=== PATIENT | female | born 1960 | race Caucasian/White ===

== ENCOUNTER 2017-05-23 16:38 | Emergency (ER) | payer SELFPAY ==
[2017-05-23] MEDS ORDERED: IPRATROPIUM/ALBUTEROL 0.5-2.5 MG/3 ML AMPUL NEB ONE (17:11)
[2017-05-23] MEDS ORDERED: KETOROLAC TROMETHAMINE 60 MG/2 ML SDV IM ONE (17:11)
--- NOTE | 2017-05-23 17:17 | ER Document Report ---
ED General - General Chief Complaint: Cough Stated Complaint: HEADACHE Time Seen by Provider: 05/23/17 17:06 Notes: pt is a 56 yo female presenting to ED today c/o cough and headache. pt reports a hx/o COPD but still smokes, although she reports "cutting back". pt is on no medications and has no primary care, due to lack of insurance. pt reports she has had a productive cough with green mucus x 1 month and she developed a headache yesterday. pt admits her chest feels tight and she had heard some wheezing. her headache is frontal, constant pressure. denies any fever, neck pain or stiffness. + nausea, no vomiting. TRAVEL OUTSIDE OF THE [place] IN LAST 30 DAYS: No - HPI Onset/Duration: Gradual, Persistent Quality of pain: Achy, Pressure Pain Level: 2 Associated symptoms: Productive cough, Headache, Nausea, Sinus pain/drainage, Sore throat. denies: Fever, Hurts to breath, Vomiting Exacerbated by: Denies Relieved by: Denies Similar symptoms previously: Yes - Related Data Allergies/Adverse Reactions: oxycodone [From OxyContin] Allergy (Verified 05/23/17 17:37) Past Medical History - General Information source: Patient - Social History Smoking Status: Current Every Day Smoker Frequency of alcohol use: None Drug Abuse: None Lives with: Family Family History: Reviewed & Not Pertinent Pulmonary Medical History: Reports: Hx COPD Renal/ Medical History: Denies: Hx Peritoneal Dialysis Past Surgical History: Reports: Hx Hysterectomy, Hx Orthopedic Surgery, Hx Tubal Ligation - Immunizations Hx Diphtheria, Pertussis, Tetanus Vaccination: Yes Review of Systems - Review of Systems Constitutional: No symptoms reported EENT: No symptoms reported Cardiovascular: No symptoms reported Respiratory: See HPI, Cough Gastrointestinal: No symptoms reported Genitourinary: No symptoms reported Female Genitourinary: No symptoms reported Musculoskeletal: No symptoms reported Skin: No symptoms reported Hematologic/Lymphatic: No symptoms reported Neurological/Psychological: No symptoms reported Physical Exam - Vital signs Vitals: Temp Pulse Resp BP Pulse Ox 97.9 F 81 18 140/81 H 96 05/23/17 16:41 05/23/17 16:41 05/23/17 16:41 05/23/17 16:41 05/23/17 16:41 Interpretation: Normal - General General appearance: Appears well, Alert In distress: None - HEENT Head: Normocephalic, Atraumatic Eyes: Normal Conjunctiva: Normal Extraocular movements intact: Yes Pupils: PERRL Tympanic membrane: Normal Pharynx: Normal. No: Erythema, Exudate Neck: Normal, Supple. No: Meningismus - Respiratory Respiratory status: No respiratory distress Chest status: Nontender Breath sounds: Decreased air movement - bases Chest palpation: Normal - Cardiovascular Rhythm: Regular Heart sounds: Normal auscultation Murmur: No - Abdominal Inspection: Normal Distension: No distension Bowel sounds: Normal Tenderness: Nontender Organomegaly: No organomegaly - Back Back: Normal, Nontender - Extremities General upper extremity: Normal inspection, Nontender, Normal color, Normal ROM , Normal temperature General lower extremity: Normal inspection, Nontender, Normal color, Normal ROM , Normal temperature, Normal weight bearing. No: Viky's sign - Neurological Neuro grossly intact: Yes Cognition: Normal Orientation: AAOx4 Marshall Coma Scale Eye Opening: Spontaneous Renny Coma Scale Verbal: Oriented Renny Coma Scale Motor: Obeys Commands Renny Coma Scale Total: 15 Speech: Normal Motor strength normal: LUE, RUE, LLE, RLE Sensory: Normal - Psychological Associated symptoms: Normal affect, Normal mood - Skin Skin Temperature: Warm Skin Moisture: Dry Skin Color: Normal Course - Re-evaluation Re-evalutation: 05/23/17 17:45 chest xray is negative. results reviewed with pt. Pt's cough is most c/w COPD exacerbation. I estimate there is low risk of metastatic disease, pneumonia, pneumothorax, CHF. pt reports some improvement after neb. will treat cough with bronchodilator, oral steroid and cough suppressant. pt declined the Toradol injection for her headache. Medicated with motrin. Pt' s headache if most consistant with a tension/sinus headache. I estimate there is low risk for acute glaucoma, temporal arteritis, meningitis, intracranial hemorrhage or ischemic stroke. pt is neurologically intact without deficits. I consider the discharge disposition reasonable. the patient and have discussed the diagnosis and risks and we agree with discharge home. We also discussed returning to the ED immediately if new or worsening symptoms occur. We have discussed the symptoms which are most concerning, increasing pain, shortness of breath, chest pain, numbness or weakness, vomiting or fever. - Vital Signs Vital signs: Temp Pulse Resp BP Pulse Ox 97.9 F 81 18 140/81 H 96 05/23/17 16:41 05/23/17 16:41 05/23/17 16:41 05/23/17 16:41 05/23/17 16:41 Discharge - Discharge Clinical Impression: Cough, COPD exacerbation Headache Qualifiers: Headache type: unspecified Headache chronicity pattern: acute headache Intractability: not intractable Qualified Code(s): R51 - Headache Condition: Stable Disposition: HOME, SELF-CARE Instructions: Chronic Obstructive Lung Disease ([facility]), Tension Headache ([facility]), Inhaled Bronchodilators ([facility]), Steroid Medication, Stop Smoking ([facility]) Additional Instructions: Your xray is negative for pneumonia Use inhaler as needed for chest tightness, wheezing Take oral steroid as prescribed Use cough suppressant as needed If your headache returns, I recommend taking 2 benadryl tablets + 1 phenergan tablet and lay down in a dark, cool room rest and hydrate stop smoking return to ER for any worsening of status Prescriptions: Benzonatate [Tessalon Perles 100 mg Capsule] 200 mg PO Q8HP PRN #40 capsule PRN Reason: Albuterol Sulfate [Proair HFA Inhalation Aerosol 8.5 gm MDI] 2 puff IH Q4H PRN # 1 mdi PRN Reason: Prednisone 20 mg PO BID #16 tablet Promethazine HCl [Phenergan 25 mg Tablet] 25 mg PO Q6H PRN #15 tablet PRN Reason:
[2017-05-23] MEDS ORDERED: IBUPROFEN 800 MG TABLET PO ONE (17:34)
--- NOTE | 2017-05-23 17:34 | RADIOLOGY REPORT (SQ) ---
EXAM DESCRIPTION: CHEST PA/LAT COMPLETED DATE/TIME: 05/23/2017 5:23 pm REASON FOR STUDY: cough x 1 month COMPARISON: 03/14/2015 EXAM PARAMETERS: NUMBER OF VIEWS: two views TECHNIQUE: Digital Frontal and Lateral radiographic views of the chest acquired. RADIATION DOSE: NA LIMITATIONS: none FINDINGS: LUNGS AND PLEURA: No opacities, masses or pneumothorax. No pleural effusion. MEDIASTINUM AND HILAR STRUCTURES: No masses or contour abnormalities. HEART AND VASCULAR STRUCTURES: Heart normal size. No evidence for failure. BONES: No acute findings. Mild degenerative changes noted in the spine. HARDWARE: None in the chest. OTHER: No other significant finding. IMPRESSION: NO SIGNIFICANT RADIOGRAPHIC FINDING IN THE CHEST. TECHNICAL DOCUMENTATION: JOB ID: [id number] [employer]- All Rights Reserved
[2017-05-23 18:12] VITALS: BP 128/69
== END 2017-05-23 18:13 | disposition home or self-care (01) ==
LOC: ER 16:38
DX: J44.1 Chronic obstructive pulmonary disease with (acute) exacerbation (principal); R05 Cough; R51 Headache; R07.9 Chest pain, unspecified; R06.2 Wheezing; R11.0 Nausea; F17.210 Nicotine dependence, cigarettes, uncomplicated
CPT/HCPCS: 94640; 99284; 71020; J7620; J1885

== ENCOUNTER 2018-10-19 13:34 | Emergency (ER) | payer SELFPAY ==
[2018-10-19 14:07] VITALS: BP 150/70
[2018-10-19] MEDS ORDERED: ONDANSETRON 4 MG TAB.RAPDIS PO ONE (15:17)
--- NOTE | 2018-10-19 15:19 | ER Document Report ---
ED Medical Screen (RME) - General Chief Complaint: Nausea/Vomiting Stated Complaint: EAR PAIN Time Seen by Provider: 10/19/18 15:17 Mode of Arrival: Ambulatory Information source: Patient Notes: 57-year-old female presents to ED for cough cold congestion body aches nausea and vomiting x3 today. She states she has had a cough. She states that the people at work of had the flu and she wanted to get tested and found it while she is having vomiting. Patient is alert oriented respirations regular and unlabored she also complained of earache and her ears are not red and inflamed or any signs or symptoms of infection. She does have a runny nose congestion. Patient will be treated with some Zofran in the pit area blood work flu test and chest x-ray will be completed and patient will be seen by another provider. I have greeted and performed a rapid initial assessment of this patient. A comprehensive ED assessment and evaluation of the patient, analysis of test results and completion of medical decision making process will be conducted by an additional ED providers. TRAVEL OUTSIDE OF THE [place] IN LAST 30 DAYS: No - Related Data Allergies/Adverse Reactions: oxycodone [From OxyContin] Allergy (Verified 10/19/18 13:35) Past Medical History Pulmonary Medical History: Reports: Hx COPD Renal/ Medical History: Denies: Hx Peritoneal Dialysis Past Surgical History: Reports: Hx Hysterectomy, Hx Orthopedic Surgery, Hx Tubal Ligation - Immunizations Hx Diphtheria, Pertussis, Tetanus Vaccination: Yes Physical Exam - Vital signs Vitals: Temp Pulse Resp BP Pulse Ox 98.5 F 80 18 150/70 H 94 10/19/18 14:06 10/19/18 14:06 10/19/18 14:06 10/19/18 14:06 10/19/18 14:06 Course - Vital Signs Vital signs: Temp Pulse Resp BP Pulse Ox 98.5 F 80 18 150/70 H 94 10/19/18 14:06 10/19/18 14:06 10/19/18 14:06 10/19/18 14:06 10/19/18 14:06
[2018-10-19 15:50] LABS: ABSOLUTE BASOPHILS # (AUTO) 0.1 10^3/uL (0.0-0.2); ABSOLUTE EOSINOPHILS # (AUTO) 0.2 10^3/uL (0.0-0.6); ABSOLUTE LYMPHOCYTES (AUTO) 3.3 10^3/uL (0.5-4.7); ABSOLUTE MONOCYTES (AUTO) 0.9 10^3/uL (0.1-1.4); ABSOLUTE NEUT (AUTO) 3.2 10^3/uL (1.7-8.2); BASOPHILS % (AUTO) 1.1 % (0-2); EOSINOPHILS % (AUTO) 2.6 % (0-6); HEMATOCRIT 46.5 % (36.0-47.0); HEMOGLOBIN 15.8 g/dL (12.0-15.5); LYMPHOCYTES % (AUTO) 42.8 % (13-45); MEAN CORPUSCULAR VOLUME 85 fl (80-97); MONOCYTES % (AUTO) 11.5 % (3-13); PLATELET COUNT 173 10^3/uL (150-450); RED BLOOD COUNT 5.46 10^6/uL (3.72-5.28); RED CELL DISTRIBUTION WIDTH 13.4 % (11.5-14.0); TOTAL CELLS COUNTED % (AUTO) 100 %; WHITE BLOOD COUNT 7.7 10^3/uL (4.0-10.5)
--- NOTE | 2018-10-19 16:02 | RADIOLOGY REPORT (SQ) ---
EXAM DESCRIPTION: CHEST 2 VIEWS COMPLETED DATE/TIME: 10/19/2018 3:49 pm REASON FOR STUDY: Cough congestion flulike symptoms COMPARISON: 05/23/2017 EXAM PARAMETERS: NUMBER OF VIEWS: two views TECHNIQUE: Digital Frontal and Lateral radiographic views of the chest acquired. RADIATION DOSE: NA LIMITATIONS: none FINDINGS: LUNGS AND PLEURA: No opacities, masses or pneumothorax. No pleural effusion. MEDIASTINUM AND HILAR STRUCTURES: No masses or contour abnormalities. HEART AND VASCULAR STRUCTURES: Heart normal size. No evidence for failure. BONES: Disc degenerative disease of the thoracic spine. HARDWARE: None in the chest. OTHER: No other significant finding. IMPRESSION: No acute abnormality of the lungs. No focal airspace opacity. TECHNICAL DOCUMENTATION: JOB ID: [id number] [employer]- All Rights Reserved Reading location - IP/workstation name: [email or web address]
[2018-10-19 16:13] LABS: APPEARANCE,URINE CLEAR; BILIRUBIN,URINE NEGATIVE (NEGATIVE); COLOR,URINE COLORLESS; GLUCOSE, URINE NEGATIVE (NEGATIVE); KETONES,URINE NEGATIVE (NEGATIVE); LEUKOCYTE ESTERASE,URINE NEGATIVE (NEGATIVE); NITRITE,URINE NEGATIVE (NEGATIVE); PROTEIN,URINE NEGATIVE (NEGATIVE); URINE SPECIFIC GRAVITY 1.001; UROBILINOGEN,URINE NEGATIVE mg/dL (<2.0)
[2018-10-19 16:20] LABS: ALANINE AMINOTRANSFERASE 26 U/L (9-52); ALBUMIN 4.3 g/dL (3.5-5.0); ALKALINE PHOSPHATASE 82 U/L (38-126); ANION GAP 9 (5-19); ASPARTATE AMINO TRANSFERASE 48 U/L (14-36); BILIRUBIN,DIRECT 0.4 mg/dL (0.0-0.4); BILIRUBIN,TOTAL 0.4 mg/dL (0.2-1.3); BLOOD UREA NITROGEN 14 mg/dL (7-20); CARBON DIOXIDE 29 mmol/L (22-30); CHLORIDE 103 mmol/L (98-107); GLUCOSE 100 mg/dL (75-110); POTASSIUM 4.5 mmol/L (3.6-5.0); SODIUM 140.8 mmol/L (137-145)
[2018-10-19 16:24] LABS: A TYPE INFLUENZA AG NEGATIVE (NEGATIVE); B INFLUENZA AG NEGATIVE (NEGATIVE)
--- NOTE | 2018-10-19 16:42 | ER Document Report ---
HPI - HPI Time Seen by Provider: 10/19/18 15:17 Pain Level: 3 Notes: Patient is a 57-year-old female with no significant past medical history who presents to the emergency department complaining of nasal congestion/discharge, dry nonproductive cough, right earache over the last 3 days. She is also had a few episodes of nausea and vomiting. She is otherwise eating and drinking without difficulty. She has no significant cardiopulmonary or immunocompromising medical conditions. She is urinating normally and having normal bowel movements. No other concerns or complaints. Denies any smoking or drug use. Denies any headache, fever, neck pain, sore throat, chest pain, palpitations, syncope, shortness of breath, wheeze, dyspnea, abdominal pain, diarrhea, urinary retention, dysuria, hematuria, or rash. - ROS Systems Reviewed and Negative: Yes All other systems reviewed and negative - REPRODUCTIVE Reproductive: DENIES: : Past Medical History - General Information source: Patient - Social History Smoking Status: Never Smoker Family History: Reviewed & Not Pertinent Pulmonary Medical History: Reports: Hx COPD Renal/ Medical History: Denies: Hx Peritoneal Dialysis Past Surgical History: Reports: Hx Hysterectomy, Hx Orthopedic Surgery, Hx Tubal Ligation - Immunizations Hx Diphtheria, Pertussis, Tetanus Vaccination: Yes Vertical Provider Document - CONSTITUTIONAL Agree With Documented VS: Yes Notes: PHYSICAL EXAMINATION: GENERAL: Well-appearing, well-nourished and in no acute distress. A&Ox4. HEAD: Atraumatic, normocephalic. EYES: Pupils equal round and reactive to light, extraocular movements intact, sclera anicteric, conjunctiva are normal. ENT: EAC clear b/l. TM's intact b/l without erythema, fluid, or perforation. Nares patent and with clear discharge. oropharynx clear without exudates. No tonsilar hypertrophy or erythema. Moist mucous membranes. No sinus tenderness. NECK: Normal range of motion, supple without lymphadenopathy LUNGS: Breath sounds clear to auscultation bilaterally and equal. No wheezes rales or rhonchi. HEART: Regular rate and rhythm without murmurs, rubs, gallops. ABDOMEN: Soft, nontender, nondistended abdomen. No guarding, no rebound. No masses appreciated. Normal bowel sounds present. No CVA tenderness bilaterally. Musculoskeletal: FROM to passive/active. Strength 5+/5. Extremities: No cyanosis, clubbing, or edema b/l. Peripheral pulses 2+. Capillary refill less than 3 seconds. NEUROLOGICAL: Cranial nerves grossly intact. Normal speech, normal gait. Nor mal sensory, motor exams PSYCH: Normal mood, normal affect. SKIN: Warm, Dry, normal turgor, no rashes or lesions noted. - INFECTION CONTROL TRAVEL OUTSIDE OF THE [place] IN LAST 30 DAYS: No Course - Re-evaluation Re-evalutation: 10/19/18 16:41 Patient is an afebrile, well-hydrated, 57-year-old female who presents to the ED with acute URI, suspect viral. Vitals are acceptable. PE is otherwise unremarkable. Pt had labs ordered through triage and were unremarkable including influenza. CXR unremarkable. Patient has no significant cardiopulmonary or immunocompromised medical conditions. Patient's lungs are clear to auscultation bilaterally without tachycardia, hypoxia, or tachypnea. Patient is tolerating p.o. without any difficulties. Low suspicion for any meningitis, sepsis, peritonsillar/pharyngeal abscess, respiratory compromise, severe dehydration, or other emergent systemic condition at this time. Patient is aware this condition can change from initial presentation and she needs to monitor symptoms closely. Conservative measures otherwise for symptoms. Recheck with your PCM in 3-5 days. Return to the ED with any worsening/concerning symptoms otherwise as reviewed in discharge. Patient is in agreement. - Vital Signs Vital signs: Temp Pulse Resp BP Pulse Ox 98.5 F 80 18 150/70 H 94 10/19/18 14:06 10/19/18 14:06 10/19/18 14:06 10/19/18 14:06 10/19/18 14:06 - Laboratory Result Diagrams: 10/19/18 15:37 10/19/18 15:37 Laboratory results interpreted by me: 10/19/18 10/19/18 10/19/18 15:37 15:37 15:53 RBC 5.46 H Hgb 15.8 H AST 48 H Urine Blood SMALL H Discharge - Discharge Clinical Impression: Acute URI Condition: Stable Disposition: HOME, SELF-CARE Instructions: Upper Respiratory Illness ([facility]) Additional Instructions: Maintain adequate fluid intake Take meds as directed tylenol/ibuprofen as needed over the counter cold medication as needed for symptoms Humidified air may help Wash your hands regularly Wear a mask when coughing F/u: with your PCM in 3-5 days for a recheck Return to the ED with any fever, worsening pain, chest pain, palpitations, syncope, worsening DIAS, neck pain/stiffness, shortness of breath, wheezing, drooling, trouble swallowing/breathing, abdominal pain, n/v/d, rash, or worsening/concerning symptoms otherwise. Forms: Elevated Blood Pressure Referrals: [facility] [Provider Group] - Follow up as needed [facility] [Provider Group] - Follow up as needed
== END 2018-10-19 16:54 | disposition home or self-care (01) ==
LOC: ER 13:34
DX: J06.9 Acute upper respiratory infection, unspecified (principal); R09.81 Nasal congestion; R09.89 Other specified symptoms and signs involving the circulatory and respiratory systems; R05 Cough; H92.01 Otalgia, right ear; R11.2 Nausea with vomiting, unspecified; J44.9 Chronic obstructive pulmonary disease, unspecified
CPT/HCPCS: 99284; 36415; 85025; 80053; 81001; 87804; 71046; S0119

== ENCOUNTER 2020-02-27 08:56 | Emergency (ER) | payer SELFPAY ==
[2020-02-27 10:12] LABS: INTERNATIONAL RATION (INR) 1.01; PROTHROMBIN TIME 13.3 SEC (11.4-15.4)
[2020-02-27] MEDS ORDERED: KETOROLAC TROMETHAMINE INJ/PF 30 MG/1 ML SDV IV ONE (10:14)
[2020-02-27] MEDS ORDERED: NORMAL SALINE 1000 ML 1,000 ML IV ONE (10:14)
[2020-02-27] MEDS ORDERED: METHYLPREDNISOLONE INJ 125 MG/2 ML SDV IV ONE (10:15)
[2020-02-27 10:18] LABS: HEMATOCRIT 43.7 % (36.0-47.0); HEMOGLOBIN 14.9 g/dL (12.0-15.5); MEAN CORPUSCULAR HEMOGLOBIN 28.9 pg (27.0-33.4); MEAN CORPUSCULAR HGB CONC 34.1 g/dL (32.0-36.0); MEAN CORPUSCULAR VOLUME 85 fl (80-97); PLATELET COUNT 276 10^3/uL (150-450); RED BLOOD COUNT 5.16 10^6/uL (3.72-5.28); RED CELL DISTRIBUTION WIDTH 13.4 % (11.5-14.0); WHITE BLOOD COUNT 4.5 10^3/uL (4.0-10.5)
[2020-02-27 10:31] LABS: ALBUMIN 4.2 g/dL (3.5-5.0); ALKALINE PHOSPHATASE 70 U/L (38-126); ANION GAP 7 (5-19); ASPARTATE AMINO TRANSFERASE 25 U/L (14-36); BILIRUBIN,TOTAL 0.5 mg/dL (0.2-1.3); BLOOD UREA NITROGEN 14 mg/dL (7-20); CALCIUM 9.4 mg/dL (8.4-10.2); CARBON DIOXIDE 26 mmol/L (22-30); CHLORIDE 101 mmol/L (98-107); GLUCOSE 117 mg/dL (75-110); POTASSIUM 4.2 mmol/L (3.6-5.0); TOTAL PROTEIN 7.1 g/dL (6.3-8.2)
[2020-02-27 10:44] LABS: ABSOLUTE LYMPHOCYTES# (MANUAL) 2.6 10^3/uL (0.5-4.7); ABSOLUTE MONOCYTES # (MANUAL) 1.2 10^3/uL (0.1-1.4); BAND NEUTROPHILS % (MANUAL) 5 % (3-5); BASOPHILS % (MANUAL) 0 % (0-2); EOSINOPHILS % (MANUAL) 1 % (0-6); LYMPHOCYTES % (MANUAL) 57 % (13-45); MONOCYTES % (MANUAL) 27 % (3-13); SEGMENTED NEUTROPHILS % (MAN) 10 % (42-78); TOTAL CELLS COUNTED 100
[2020-02-27 10:45] LABS: PLATELET COMMENT ADEQUATE; RBC MORPHOLOGY COMMENT NORMO-CYTIC/CHROMIC
--- NOTE | 2020-02-27 10:46 | ER Document Report ---
Entered by JERROD JAY SCRIBE 02/27/20 1018 Acting as scribe for:JOSE LUIS MARIE MD ED General - General Chief Complaint: Headache Stated Complaint: HEADACHE Time Seen by Provider: 02/27/20 09:50 Mode of Arrival: Ambulatory Information source: Patient Notes: This 59-year-old female patient presents to the emergency department today with complaints of a headache for the last two days. Patient states yesterday she developed left-sided facial pain, left sided throat pain, and left ear pain as well and she thinks they could be related. Patient mentions that she has an area on her fourth finger as well where she thinks she may have been bit by something. Patient states she noticed this area last night but did not see anything bite her. TRAVEL OUTSIDE OF THE [place] IN LAST 30 DAYS: No - Related Data Allergies/Adverse Reactions: oxycodone [From OxyContin] Allergy (Verified 10/19/18 13:35) Past Medical History - General Information source: Patient - Social History Smoking Status: Never Smoker Cigarette use (# per day): No Frequency of alcohol use: None Drug Abuse: None Lives with: Family Family History: Reviewed & Not Pertinent Pulmonary Medical History: Reports: Hx COPD Past Surgical History: Reports: Hx Hysterectomy, Hx Orthopedic Surgery, Hx Tubal Ligation - Immunizations Hx Diphtheria, Pertussis, Tetanus Vaccination: Yes Review of Systems - Review of Systems Constitutional: No symptoms reported EENT: See HPI, Ear pain, Throat pain Cardiovascular: No symptoms reported Respiratory: No symptoms reported Gastrointestinal: No symptoms reported Genitourinary: No symptoms reported Female Genitourinary: No symptoms reported Musculoskeletal: No symptoms reported Skin: See HPI, Lesions Hematologic/Lymphatic: No symptoms reported Neurological/Psychological: See HPI, Headaches -: Yes All other systems reviewed and negative Physical Exam - Vital signs Vitals: Temp Pulse Resp BP Pulse Ox 98.5 F 98 16 118/70 94 02/27/20 09:23 02/27/20 09:23 02/27/20 09:23 02/27/20 09:23 02/27/20 09:23 - Notes Notes: Physical Exam: General: Alert, appears uncomfortable. HEENT: Normocephalic. Atraumatic. PERRL. Extraocular movements intact. Oropharynx clear. Soft palate on the left is erythematous, swollen, and bulging. Tenderness with palpation over the angle of the jaw on the left. Uvula is midline, there is no uvula edema. Left TM is retracted but not erythematous. Neck: Supple. Left posterior cervical tenderness with palpation. Left temporal and frontal musculature tenderness with palpation. Respiratory: No respiratory distress. Clear and equal breath sounds bilaterally. Cardiovascular: Regular rate and rhythm. Abdominal: Normal Inspection. Non-tender. No distension. Normal Bowel Sounds. Back: No gross abnormalities. Extremities: Moves all four extremities. Upper extremities: Normal inspection. Normal ROM. Lower extremities: Normal inspection. No edema. Normal ROM. Neurological: Normal cognition. AAOx4. Normal speech. Psychological: Normal affect. Normal Mood. Skin: Right dorsal proximal finger has blueish red discoloration with a central area of thinned skin. Course - Re-evaluation Re-evalutation: 02/27/20 12:53 PROCEDURE: The right fourth finger blistered lesion over the dorsal proximal phalanx. It has a surrounding reddish purplish discoloration. This is very suggestive of a spider bite or other venomous bite. The skin was prepped with alcohol wipes, the blistered area was incised with an 18-gauge needle and clear fluid drained. A sterile Band-Aid dressing was applied. - Vital Signs Vital signs: Temp Pulse Resp BP Pulse Ox 98.5 F 98 16 118/70 94 02/27/20 09:23 02/27/20 09:23 02/27/20 09:23 02/27/20 09:23 02/27/20 09:23 - Laboratory Result Diagrams: 02/27/20 09:44 02/27/20 09:44 Laboratory results interpreted by me: 02/27/20 02/27/20 02/27/20 09:44 09:44 11:10 Seg Neuts % (Manual) 10 L Lymphocytes % (Manual) 57 H Monocytes % (Manual) 27 H Abs Neuts (Manual) 0.7 L Sodium 133.5 L Glucose 117 H Urine Protein 100 H Urine Blood MODERATE H Discharge - Discharge Clinical Impression: Peritonsillar cellulitis Headache Qualifiers: Headache type: tension-type Headache chronicity pattern: unspecified pattern Intractability: not intractable Qualified Code(s): G44.209 - Tension-type headache, unspecified, not intractable Insect bite of finger of right hand Qualifiers: Encounter type: initial encounter Finger: ring finger Qualified Code(s): S60.464A - Insect bite (nonvenomous) of right ring finger, initial encounter Condition: Stable Disposition: HOME, SELF-CARE Additional Instructions: Tension Headache Your headache has been diagnosed as muscle tension headache. This very common type of headache occurs because of tightness in the muscles of the head and neck. The headache may last hours or days. The treatment of uncomplicated tension headaches is rest and pain medicat ion. Often, the newer antiinflammatory pain medications are prescribed, as these also decrease the irritability of the painful tissues. Muscle relaxers, cold packs, or warm packs are sometimes helpful. Anti-anxiety medication or narcotics are sometimes needed temporarily, but are best avoided in the long run. Your doctor has evaluated your headache problem, and finds no evidence of a serious health problem as a cause for the headache. If your headache becomes more severe, or if new symptoms develop (such as fever, stiff neck, vomiting, or decreasing alertness) you should be re-examined by the physician. Marnie-Tonsillar Cellulitis You have a marnie-tonsillar cellulitis, a soft tissue infection adjacent to the tonsil. The cellulitis will occasionally progress to cause a peritonsillar abscess. If you develop the abscess, it will need to be opened and drained. If you develop fever, chills, worsening pain, or increasing swelling in the area, call the doctor or return immediately. The major risk of a marnie-tonsillar abscess is that it may swell so much that it impinges on your airway and can lead to dangerous obstruction of your breathing. If that seems to be deve loping, you should seek immediate emergency re-evaluation and care. Insect Bites You have PROBABLY been bitten by an insect. These bites can cause two types of swelling: an initial swelling due to insect saliva or injected poison, and a late reaction due to your body's allergic reaction. This initial local reaction may be uncomfortable but is not dangerous. Often there's an itchy "hive" at the bite location. This is treated with antihistamines, cold compresses, and resting the affected body part. The later reaction often develops about the second day. The entire area becomes very swollen, red, itchy, and tender. This is an allergic reaction. Your body is attacking the leftover insect saliva or venom. This type of allergy is unpleasant, but not dangerous. We treat this swelling with cortisone-type medicine. Sometimes we use antibiotics if we're worried about in fection. Antihistamines help with the itch. If you develop a fever, chills, a red streak, or swollen glands in the area of the bite, infection may be starting. Return at once. Take the medications as prescribed. Start the doxycycline tonight, and start the prednisone tomorrow. Drink plenty of fluids and get plenty of rest. Take Tylenol and Motrin or Aleve for pain and fever as needed. Keep the finger wound clean and dressed with a Band-Aid. Follow-up with a local primary care provider for recheck in a few days. Return to the emergency room for recheck if the swelling in the back of your throat gets worse. RETURN TO THE EMERGENCY ROOM IF ANY NEW OR WORSENING SYMPTOMS. Prescriptions: Prednisone [Deltasone 10 mg Tablet] 10 mg PO ASDIR PRN #21 tablet PRN Reason: Doxycycline Hyclate 100 mg PO BID #20 tablet.dr Ríos personally performed the services described in the documentation, reviewed and edited the documentation which was dictated to the scribe in my presence, and it accurately records my words and actions.
[2020-02-27 11:25] LABS: APPEARANCE,URINE CLEAR; BILIRUBIN,URINE NEGATIVE (NEGATIVE); COLOR,URINE YELLOW; GLUCOSE, URINE NEGATIVE (NEGATIVE); KETONES,URINE NEGATIVE (NEGATIVE); LEUKOCYTE ESTERASE,URINE NEGATIVE (NEGATIVE); NITRITE,URINE NEGATIVE (NEGATIVE); PROTEIN,URINE 100 mg/dL (NEGATIVE); URINE SPECIFIC GRAVITY 1.009; UROBILINOGEN,URINE NEGATIVE mg/dL (<2.0)
[2020-02-27] MEDS ORDERED: DOXYCYCLINE HYCLATE 100 MG TABLET PO ONE (12:38)
[2020-02-27] MEDS ORDERED: PREDNISONE 20 MG TABLET PO ONE (12:44)
[2020-02-27 12:58] VITALS: BP 120/62
[2020-02-28 14:32] LABS: PATH REVIEW PATHOLOGIST REVIEWED
== END 2020-02-27 12:57 | disposition home or self-care (01) ==
LOC: ER 08:56
DX: J36 Peritonsillar abscess (principal); G44.209 Tension-type headache, unspecified, not intractable; S60.464A Insect bite (nonvenomous) of right ring finger, initial encounter; R07.0 Pain in throat; H92.02 Otalgia, left ear; R68.84 Jaw pain; W57.XXXA Bitten or stung by nonvenomous insect and other nonvenomous arthropods, initial encounter; Z88.8 Allergy status to other drugs, medicaments and biological substances; J44.9 Chronic obstructive pulmonary disease, unspecified
CPT/HCPCS: 99284; 96361; 96374; 96375; 36415; 87070; 87880; 85025; 85610; 86308; 80053; 81001; J2930; J1885; J7030

== ENCOUNTER 2020-03-02 20:43 | Emergency (ER) | payer SELFPAY ==
--- NOTE | 2020-03-02 22:04 | ER Document Report ---
ED Medical Screen (RME) - General Chief Complaint: Palpitations Stated Complaint: LEFT ARM NUMBNESS/HEART RACING Time Seen by Provider: 03/02/20 21:55 Notes: Patient is a 59-year-old female who presents emergency department with a chief complaint of left arm numbness and her heart racing that started this morning.patient was seen here on February 26 and was evaluated for an abscess to her right fourth digit. Patient was started on prednisone and doxycycline. Patient states that this morning she had applications and left-sided numbness. Patient had similar symptoms when she was seen on February 26. Denies any weakness. Has a history of COPD. Exam: Normal strength in bilateral upper extremities. I have greeted and performed a rapid initial assessment of this patient. A comprehensive ED assessment and evaluation of the patient, analysis of test results and completion of medical decision making process will be conducted by an additional ED providers. TRAVEL OUTSIDE OF THE [place] IN LAST 30 DAYS: No - Related Data Allergies/Adverse Reactions: oxycodone [From OxyContin] Allergy (Verified 10/19/18 13:35) Past Medical History - Social History Chew tobacco use (# tins/day): No Frequency of alcohol use: None Drug Abuse: None Pulmonary Medical History: Reports: Hx COPD Renal/ Medical History: Denies: Hx Peritoneal Dialysis Past Surgical History: Reports: Hx Hysterectomy, Hx Orthopedic Surgery, Hx Tubal Ligation - Immunizations Hx Diphtheria, Pertussis, Tetanus Vaccination: Yes Physical Exam - Vital signs Vitals: Temp Pulse Resp BP Pulse Ox 99.2 F 98 20 144/69 H 94 03/02/20 20:58 03/02/20 20:58 03/02/20 20:58 03/02/20 20:58 03/02/20 20:58 Course - Vital Signs Vital signs: Temp Pulse Resp BP Pulse Ox 99.2 F 98 20 144/69 H 94 03/02/20 20:58 03/02/20 20:58 03/02/20 20:58 03/02/20 20:58 03/02/20 20:58
--- NOTE | 2020-03-02 22:09 | EKG REPORT ---
SEVERITY:- OTHERWISE NORMAL ECG - SINUS TACHYCARDIA BORDERLINE RIGHT AXIS DEVIATION : Confirmed by: Susana Sanders 02-Mar-2020 22:08:39
[2020-03-03 04:35] LABS: HEMATOCRIT 42.6 % (36.0-47.0); HEMOGLOBIN 14.6 g/dL (12.0-15.5); MEAN CORPUSCULAR HEMOGLOBIN 28.7 pg (27.0-33.4); MEAN CORPUSCULAR HGB CONC 34.3 g/dL (32.0-36.0); MEAN CORPUSCULAR VOLUME 84 fl (80-97); PLATELET COUNT 324 10^3/uL (150-450); RED BLOOD COUNT 5.09 10^6/uL (3.72-5.28); RED CELL DISTRIBUTION WIDTH 13.1 % (11.5-14.0); WHITE BLOOD COUNT 9.3 10^3/uL (4.0-10.5)
[2020-03-03 04:57] LABS: BAND NEUTROPHILS % (MANUAL) 6 % (3-5); BASOPHILS % (MANUAL) 0 % (0-2); EOSINOPHILS % (MANUAL) 5 % (0-6); LYMPHOCYTES % (MANUAL) 32 % (13-45); MONOCYTES % (MANUAL) 21 % (3-13); RBC MORPHOLOGY COMMENT NORMO-CYTIC/CHROMIC; SEGMENTED NEUTROPHILS % (MAN) 36 % (42-78); TOTAL CELLS COUNTED 100
[2020-03-03 04:58] LABS: PLATELET COMMENT ADEQUATE
[2020-03-03 05:01] LABS: ALBUMIN 3.9 g/dL (3.5-5.0); ALKALINE PHOSPHATASE 77 U/L (38-126); ANION GAP 7 (5-19); ASPARTATE AMINO TRANSFERASE 23 U/L (14-36); BILIRUBIN,DIRECT 0.2 mg/dL (0.0-0.4); BILIRUBIN,TOTAL 0.5 mg/dL (0.2-1.3); BLOOD UREA NITROGEN 14 mg/dL (7-20); CALCIUM 9.5 mg/dL (8.4-10.2); CARBON DIOXIDE 28 mmol/L (22-30); CHLORIDE 101 mmol/L (98-107); CREATINE KINASE 32 U/L (30-135); GLUCOSE 115 mg/dL (75-110); POTASSIUM 4.3 mmol/L (3.6-5.0); TOTAL PROTEIN 6.9 g/dL (6.3-8.2)
[2020-03-03 05:13] LABS: CREATINE KINASE MB 0.41 ng/mL (<4.55)
[2020-03-03 05:19] LABS: TROPONIN I < 0.012 ng/mL
--- NOTE | 2020-03-03 06:13 | RADIOLOGY REPORT (SQ) ---
AP Portable chest: 03/03/2020 5:12 AM CDT History: 59-year old patient with chest pain. Comparison: Chest radiograph performed 10/19/2017. Findings: The cardiomediastinal silhouette is normal in size. No pneumothorax is seen. No acute airspace opacities are seen. No discrete pleural effusion is apparent. Impression: No acute airspace opacities are seen.
[2020-03-03] MEDS ORDERED: AMOXICILLIN TR/POT CLAVULANATE 875-125 MG TAB PO ONE (06:31)
--- NOTE | 2020-03-03 06:40 | ER Document Report ---
Entered by SYLWIA MUJICA SCRIBE 03/03/20 0500 Acting as scribe for:VALARIE WINN IV, MD ED General - General Chief Complaint: Palpitations Stated Complaint: LEFT ARM NUMBNESS/HEART RACING Time Seen by Provider: 03/02/20 21:55 Mode of Arrival: Ambulatory Information source: Patient Notes: This 59 year old female patient presents to the ED today with complaints of palpitations and LUE pain that started yesterday morning. Patient states that she was concerned due to her family history of CAD, so she decided to come to the ED for evalulation. Denies any worsening factors for the pain. She reports that she was seen here x5 days ago for left ear and left-sided throat pain and was prescribed Doxycycline and Prednisone; however, she states that she still continues to have pain. She notes a history of COPD (no home O2, uses albuterol inhaler), chronic cough, and smokes 0.5 ppd. Denies chest pain, shortness of breath, fever, chills, numbness/tingling, or use of decongestants. TRAVEL OUTSIDE OF THE [place] IN LAST 30 DAYS: No - Related Data Allergies/Adverse Reactions: oxycodone [From OxyContin] Allergy (Verified 10/19/18 13:35) Past Medical History - General Information source: Patient, [facility] Records - Social History Smoking Status: Current Every Day Smoker Cigarette use (# per day): Yes - 0.5 ppd Chew tobacco use (# tins/day): No Smoking Education Provided: No Frequency of alcohol use: None Drug Abuse: None Family History: Reviewed & Not Pertinent, CAD - Reports mother and father had MIs Patient has suicidal ideation: No Patient has homicidal ideation: No Pulmonary Medical History: Reports: Hx COPD Past Surgical History: Reports: Hx Hysterectomy, Hx Orthopedic Surgery, Hx Tubal Ligation - Immunizations Hx Diphtheria, Pertussis, Tetanus Vaccination: Yes Review of Systems - Review of Systems Constitutional: See HPI. denies: Chills, Fever EENT: See HPI, Ear pain, Throat pain Cardiovascular: See HPI, Palpitations. denies: Chest pain Respiratory: See HPI, Cough - chronic. denies: Short of breath Gastrointestinal: No symptoms reported Genitourinary: No symptoms reported Female Genitourinary: No symptoms reported Musculoskeletal: See HPI, Other - LUE pain Skin: No symptoms reported Hematologic/Lymphatic: No symptoms reported Neurological/Psychological: No symptoms reported -: Yes All other systems reviewed and negative Physical Exam - Vital signs Vitals: Temp Pulse Resp BP Pulse Ox 99.2 F 98 20 144/69 H 94 03/02/20 20:58 03/02/20 20:58 03/02/20 20:58 03/02/20 20:58 03/02/20 20:58 - General General appearance: Alert In distress: None - HEENT Head: Normocephalic, Atraumatic Eyes: Normal Pupils: PERRL Tympanic membrane: Other - Left TM is erythematous, bulging, and has clear fluid behind it Pharynx: Erythema, Other - No uvular deviation or submandibular swelling. No: Exudate Neck: No: Lymphadenopathy - Respiratory Respiratory status: No respiratory distress Chest status: Nontender Breath sounds: Normal Chest palpation: Normal - Cardiovascular Rhythm: Regular Heart sounds: Normal auscultation Murmur: No Friction rub: No Gallop: None auscultated - Abdominal Inspection: Normal Distension: No distension Bowel sounds: Normal Tenderness: Nontender Organomegaly: No organomegaly - Back Back: Normal, Nontender - Extremities General upper extremity: Normal inspection General lower extremity: Normal inspection - Neurological Neuro grossly intact: Yes Orientation: AAOx4 Renny Coma Scale Eye Opening: Spontaneous Renny Coma Scale Verbal: Oriented [place] Coma Scale Motor: Obeys Commands Renny Coma Scale Total: 15 - Psychological Associated symptoms: Normal affect, Normal mood - Skin Skin Temperature: Warm Skin Moisture: Dry Skin Color: Normal Course - Re-evaluation Re-evalutation: 03/03/20 06:31 Results of ED MSE discussed with patient. All questions were answered prior to discharge. Emergency signs and symptoms, reasons to return to the emergency department discussed with patient. - Vital Signs Vital signs: Temp Pulse Resp BP Pulse Ox 99.2 F 98 20 115/81 94 03/02/20 20:58 03/02/20 20:58 03/03/20 06:01 03/03/20 06:00 03/03/20 06:01 - Laboratory Result Diagrams: 03/03/20 04:00 03/03/20 04:00 Laboratory results interpreted by me: 03/03/20 03/03/20 04:00 04:00 Seg Neuts % (Manual) 36 L Band Neutrophils % 6 H Monocytes % (Manual) 21 H Abs Monocytes (Manual) 2.0 H Sodium 136.1 L Glucose 115 H - Diagnostic Test Radiology reviewed: Reports reviewed - EKG Interpretation by Me Additional EKG results interpreted by me: 03/03/20 06:33 EKG obtained on 03/02/2020 at 2050 hrs. was interpreted by this MD. Findings: Sinus tachycardia, rate 101, P waves preceding QRS complexes, QRS complexes appear narrow, there are no obvious patterns of ST segment elevation or depression present to suggest acute myocardial ischemia or infarction. Impression: Sinus tachycardia with nonspecific ST segments. Discharge - Discharge Clinical Impression: Left otitis media with effusion, Left arm pain, Palpitations Condition: Stable Disposition: HOME, SELF-CARE Additional Instructions: Return to the Emergency Department without delay if any worse. HOME CARE INSTRUCTIONS & INFORMATION: Thank you for choosing us for your medical needs. We hope you're satisfied with the care you received. After you leave, you must properly care for your problem and, at the same time, observe its progress. Any condition can change. Some illnesses can change rapidly over hours or days. If your condition worsens, return to the Emergency Department or see your physician promptly. ABOUT YOUR X-RAYS AND EKG'S: If you had an EKG or X-rays taken, they have been read by the Emergency Physician. The X-rays and EKG's will also be read by a Radiologist or Boathouse Keeper within 24 hours. If discrepancies are noted, you will be notified by telephone. Please be certain the ED has a correct telephone number & address where you can be reached. Also, realize that some fractures or abnormalities do not show up on initial X-rays. If your symptoms continue, see your physician. ABOUT YOUR LABORATORY TEST: If you had laboratory tests, the results have been reviewed by the Emergency Physician. Some test results (for example cultures) may not be available for several days. You will be contacted if any test result shows you need additional treatment. Please be certain the ED has a correct telephone number and address where you can be reached. ABOUT YOUR MEDICATIONS: You will receive instructions on how to take your medicine on the prescription label you receive. Additional information may be provided by the Pharmacy. If you have questions afterwards, call the ED for clarification or further instructions. Some prescribed medications may cause drowsiness. Do not perform tasks such as driving a car or operating machinery without consulting your Pharmacist. If you feel you need a refill of pain medication, your condition will need re-evaluation. Please do not call for a refill of any medication. ABOUT YOUR SIGNATURE: Signature of this document acknowledges to followin. Understanding that you received emergency treatment and that you may be released before al medical problems are known or treated. Please be certain the ED has a correct phone number & address where you can be reached. 2. Acknowledgement that you will arrange for follow-up care as recommended. 3. Authorization for the Emergency Physician to provide information to your follow-up Physician in order to maximize your care. AT ANY TIME, IF YOUR SYMPTOMS CHANGE SIGNIFICANTLY OR WORSEN OR YOU DEVELOP NEW SYMPTOMS, RETURN TO THE EMERGENCY DEPARTMENT IMMEDIATELY FOR RE-EVALUATION. OUR GOAL IS TO PROVIDE EXCELLENT MEDICAL CARE! WE HOPE THAT WE HAVE MET YOUR EXPECTATIONS DURING YOUR EMERGENCY DEPARTMENT VISIT AND THAT YOU FEEL YOU HAVE RECEIVED EXCELLENT CARE! Otitis Media You have a middle ear infection (otitis media). This is usually a complication of a cold or sore throat. The middle ear cavity becomes filled with infection. Pressure and stretching of the ear drum cause pain. Antibiotics are required. A 10 day course is usually prescribed. A decongestant may be recommended if you have a "runny nose." You may need anesthetic drops or other pain medication. A follow-up exam may be recommended to make sure the infection has completely cleared. If the ear begins to drain, it means the ear drum has ruptured. This will usually heal spontaneously. However, it means you should keep the ear dry until re-examined by a doctor. Call the physician or return for examination at once if there is severe headache, stiff neck, confusion, increasing fever, or dizziness. You should improve significantly within two days. If you're not better, call the doctor. Palpitations (Irregular/Rapid Heartrate) Irregular or rapid heartbeat is called "palpitation." To diagnose the cause of palpitation, we have to "catch it in the act" with an EKG. Sinus Tachycardia: This is a rapid (but NORMAL) rhythm that can be due to fever, pain, anxiety, lack of sleep, over-exertion, or drugs. Cold medications, caffeine, and diet pills are particularly likely to cause tachycardia. Usually, all that's required is rest, reassurance, and avoiding caffeine, alcohol, nicotine, and unnecessary medicines. Paroxysmal Atrial Tachycardia (PAT): This abnormally rapid heartbeat is caused by a "short circuit" in the electrical system of the heart. It is not dangerous, unless other heart disease is present. These attacks of PAT may occur occasionally for years. Medication is available for treatment. Paroxysmal Atrial Fibrillation or Atrial Flutter: This is irregular electrical activity in the upper heart chamber. These abnormal rhythms often occur with valve disease or in hearts damaged by hardening of the arteries. These rhythms usually require further testing, for example a cardiac echo. Premature Beats: Extra beats occur more commonly after caffeine, nicotine, alcohol, cold pills, diet pills. Emotional stress or fatigue also provoke them. Extra beats are only dangerous when heart disease is present. They usually need no treatment. If they're frequent, or if evidence of heart disease develops, medication can be given to suppress them. If we were unable to "catch" the palpitations on EKG, you should try to get an EKG immediately if the symptoms begin again. Contact the physician at once if you develop persistent lightheadedness, shortness of breath, chest pain, or swelling of the ankles. Prescriptions: Amoxicillin/Potassium Clav [Augmentin 875-125 Tablet] 1 tab PO Q12 #20 tablet Referrals: LUIS MEI MD [HONORARY] - Follow up as needed I personally performed the services described in the documentation, reviewed and edited the documentation which was dictated to the scribe in my presence, and it accurately records my words and actions.
[2020-03-03 06:44] VITALS: BP 122/82
== END 2020-03-03 06:45 | disposition home or self-care (01) ==
LOC: ER 20:43
DX: H65.92 Unspecified nonsuppurative otitis media, left ear (principal); M79.602 Pain in left arm; R00.2 Palpitations; R20.0 Anesthesia of skin; J44.9 Chronic obstructive pulmonary disease, unspecified; F17.210 Nicotine dependence, cigarettes, uncomplicated; Z88.6 Allergy status to analgesic agent; Z90.710 Acquired absence of both cervix and uterus
CPT/HCPCS: 93005; 99285; 36415; 82553; 82550; 85025; 80053; 84484; 71045; 93010; J3490